=== PATIENT | male | born 1950 | race African-American/Black ===

== ENCOUNTER 2018-06-20 08:36 | Day surgery (SDC) | payer MEDICARE ==
[2018-06-20 09:54] LABS: Albumin 3.9 g/dL (3.9-5); Calcium 8.8 mg/dL (8.4-10.2)
[2018-06-20] MEDS ORDERED: NITROSTAT SL NR ×2 (10:00→10:30)
[2018-06-20] MEDS ORDERED: ATROPINE 0.1% (CARDIAC) ONE (10:05)
[2018-06-20] MEDS ORDERED: LOPRESSOR IV NR (10:30)
[2018-06-20 11:24] VITALS: BP 125/67
--- NOTE | 2018-06-21 08:45 | Cat Scan Report ---
LIMITED CT OF THE CHEST PER CT CORONARY ANGIOGRAPHY PROTOCOL: History: Chest pain. Limited CT of the chest per CT coronary angiography protocol is submitted. The cardiac portion of the exam has been previously interpreted by the [facility]. There are a few partially calcified small right hilar lymph nodes. 3 mm calcified granuloma is noted at the left lung base. A 7 mm noncalcified density is identified in the anterior right upper lobe. This appears to represent a pleural fold or noncalcified granuloma. Consider followup. The lungs are clear otherwise with no significant parenchymal lung disease. Limited images of the upper abdomen are unremarkable. IMPRESSION: Mild chronic granulomatous disease is noted at the lung bases.
--- NOTE | 2018-06-23 09:03 | Procedure Note ---
PROCEDURE: Coronary CTA. ORDERING PHYSICIAN: Vinita Lott MD INDICATION: Chest pain. FINDINGS: 1. The total calcium score is 27. The percentile rank according to the BARR is 34% for subject of the same age, gender, and ethnicity. 2. This is a right dominant circulation. 3. The left main is patent with no evidence of obstructive disease. The left main bifurcates into a normal fashion into the LAD and the left circumflex artery. 4. The left anterior descending artery is patent in its proximal and mid segment. There is a nonobstructive calcified lesion in the mid segment. The distal LAD is not visualized due to misregistration artifact. 5. The left circumflex artery is also patent in the proximal and mid segment. The distal circumflex artery is not visualized due to misregistration artifact. 6. The right coronary artery is patent in its proximal and mid segment. The distal right coronary artery is not visualized due to misregistration artifact. 7. The aortic valve is trileaflet. The ascending aorta measures 3.0 x 3.1 cm. 8. There is normal pericardial thickness. There is no evidence of a hiatal hernia. IMPRESSION: 1. This is a poor quality 64 slice coronary CTA due to misregistration artifact from the patient not holding his breath during the study. 2. The total calcium score is 27 which corresponds a percentile of 34 according to per BARR criteria: 3. Nonobstructive calcified stenoses noted in the mid LAD. Otherwise, the proximal and mid coronary segments are patent; however, the distal coronary segments are not visualized due to misregistration artifacts. 4. Results were discussed with ordering physician. 5. Please refer to the radiology overread of remaining extracardiac structures. JOB# [id number] MARAH/MARION
== END 2018-06-20 11:10 | disposition home or self-care (01) ==
LOC: CATHLABREC 08:36 → EDSTATUS 08:45 → CATHLABREC 11:10
PROVIDERS: ATTEND Internal Medicine Cardiovascular Disease
DX: J84.10 Pulmonary fibrosis, unspecified (principal); R07.9 Chest pain, unspecified; E78.00 Pure hypercholesterolemia, unspecified; I11.9 Hypertensive heart disease without heart failure; R59.9 Enlarged lymph nodes, unspecified; E11.9 Type 2 diabetes mellitus without complications; N28.9 Disorder of kidney and ureter, unspecified; Z79.899 Other long term (current) drug therapy
CPT/HCPCS: 36415; 75574; 80053; Q9967; J0461